=== PATIENT | male | born 1970 | race Two or more races ===

== ENCOUNTER 2019-04-26 10:48 | Emergency (ER) | payer SELFPAY ==
[~2019-04-26] VITALS: Ht 154.9 cm; Wt 73.0 kg
[2019-04-26 13:21] LABS: CLARITY URINE CLEAR (CLEAR); COLOR URINE YELLOW (YELLOW); KETONES URINE NEGATIVE (NEGATIVE); LEUKOCYTE ESTERASE URINE NEGATIVE (NEGATIVE); NITRITE URINE NEGATIVE (NEGATIVE); OCCULT BLOOD URINE NEGATIVE (NEGATIVE); PROTEIN URINE NEGATIVE (NEGATIVE); SPECIFIC GRAVITY URINE 1.039 (1.005-1.030); UROBILINOGEN URINE 0.2 E.U./dL (0.2-1.0)
[2019-04-26] MEDS ORDERED: IBUPROFEN 600MG TABLET PO STA (13:47)
[2019-04-26 14:58] VITALS: BP 126/78
== END 2019-04-26 14:59 | disposition home or self-care (01) ==
LOC: ER 10:48
DX: J20.9 Acute bronchitis, unspecified (principal); M54.5 Low back pain
CPT/HCPCS: 71045; 81003; 99284

== ENCOUNTER 2019-05-06 09:43 | Inpatient (IN) | payer OTHER, MEDICAID ==
[~2019-05-06] VITALS: Ht 154.9 cm; Wt 56.7 kg
[2019-05-06] MEDS ORDERED: METF-415 PO (10:04)
[2019-05-06] MEDS ORDERED: SODIUM CHLORIDE 0.9% 1,000 ML IV ONE (10:11)
[2019-05-06] MEDS ORDERED: KETOROLAC 30MG/ML VIAL IV STA (10:11)
[2019-05-06 10:53] LABS: HEMATOCRIT. 40.7 % (42.0-52.0); HEMOGLOBIN. 13.5 g/dL (14.0-18.0); MEAN CORPUSCULAR HEMOGLOBIN 29.5 pg (28.0-32.0); MEAN CORPUSCULAR VOLUME 89.1 fL (80.0-94.0); MEAN PLATELET VOLUME 8.2 fl (7.4-10.4); PLATELET 479 x1000/uL (130-400); RED BLOOD CELL COUNT 4.57 mill/uL (4.7-6.1); RED CELL DISTRIBUTION WIDTH 12.1 % (11.6-14.6)
[2019-05-06 10:59] LABS: CHLORIDE 98 mEq/L (98-107)
[2019-05-06 11:05] LABS: CLARITY URINE CLEAR (CLEAR); COLOR URINE YELLOW (YELLOW); KETONES URINE 1+ (NEGATIVE); LEUKOCYTE ESTERASE URINE NEGATIVE (NEGATIVE); NITRITE URINE NEGATIVE (NEGATIVE); OCCULT BLOOD URINE NEGATIVE (NEGATIVE); PH URINE 5.5 (4.5-8.0); PROTEIN URINE TRACE (NEGATIVE); SPECIFIC GRAVITY URINE 1.038 (1.005-1.030)
[2019-05-06 11:11] LABS: INR 0.9; PROTHROMBIN TIME 9.7 sec (9.6-11.0)
[2019-05-06 12:06] LABS: PLATELET ESTIMATE INCREASED
[2019-05-06] MEDS ORDERED: SODIUM CHLORIDE 0.9% 1000ML BAG (SEPSIS BOLUS) IV ONE (12:15)
[2019-05-06] MEDS ORDERED: LEVOFLOXACIN 500MG PREMIX 100 ML IV ONE (12:15)
[2019-05-06] MEDS ORDERED: INSULIN REGULAR (HUMULIN R) 300UNITS/3ML IV ONE (13:45)
[2019-05-06 16:30] VITALS: BP 140/84
[2019-05-06] MEDS ORDERED: SODIUM CHLORIDE 0.45% 1,000 ML IV SCH (17:54)
[2019-05-06] MEDS ORDERED: CLONIDINE 0.1MG TABLET PO PRN (18:00)
[2019-05-06] MEDS ORDERED: ACETAMINOPHEN 325MG TABLET PO PRN (18:00)
[2019-05-06] MEDS ORDERED: MAGNESIUM/ALUMINUM HYDROXIDE/SIMETHICONE 30ML UDC PO PRN (18:00)
[2019-05-06] MEDS ORDERED: ONDANSETRON HCL 4MG/2ML INJ IV PRN (18:00)
[2019-05-06] MEDS ORDERED: HYDROMORPHONE HCL/PF 2MG/ML CPJ IV PRN (18:00)
[2019-05-06] MEDS ORDERED: DOCUSATE SODIUM 100MG CAPSULE PO PRN (18:00)
[2019-05-06 20:00] VITALS: BP 157/85
[2019-05-06] MEDS: CEFTRIAXONE 1 G PREMIX 50 ML IV SCH (20:32)
[2019-05-06] MEDS: ENOXAPARIN 40MG/0.4ML SYR SUBCUT SCH (20:38)
[2019-05-06] MEDS: HYDROCODONE/ACETAMINOPHEN 5/325MG TABLET PO PRN (20:42)
[2019-05-06] MEDS: AZITHROMYCIN 500 MG in DEXT 5% WATER 250 ML IV SCH (21:40)
[2019-05-06] MEDS: INSULIN GLARGINE UD 100 UNITS/ML SYR SUBCUT SCH (21:43)
[2019-05-07] VITALS: BP 130/74
[2019-05-07 04:00] VITALS: BP 139/77
[2019-05-07 07:32] LABS: CHLORIDE 104 mEq/L (98-107)
[2019-05-07 07:34] LABS: BASOPHILS % 0.9 % (0.0-2.0); EOSINOPHILS % 10.5 % (0.0-5.0); HEMATOCRIT. 33.6 % (42.0-52.0); HEMOGLOBIN. 11.8 g/dL (14.0-18.0); MEAN CORPUSCULAR HEMOGLOBIN 30.5 pg (28.0-32.0); MEAN CORPUSCULAR VOLUME 86.7 fL (80.0-94.0); MEAN PLATELET VOLUME 7.9 fl (7.4-10.4); MONOCYTES % 7.6 % (2.0-8.0); PLATELET 445 x1000/uL (130-400); RED BLOOD CELL COUNT 3.88 mill/uL (4.7-6.1); RED CELL DISTRIBUTION WIDTH 12.1 % (11.6-14.6)
[2019-05-07 07:50] LABS: LDL CHOLESTEROL 77 mg/dL (5-100)
[2019-05-07 07:51] LABS: HDL CHOLESTEROL 28 mg/dL (40-59)
[2019-05-07] MEDS: HYDROCODONE/ACETAMINOPHEN 5/325MG TABLET PO PRN ×2 (07:52→21:22)
[2019-05-07 08:00] VITALS: BP 148/80
[2019-05-07] MEDS: AMLODIPINE 10MG TABLET PO SCH (08:47)
[2019-05-07] MEDS: CEFTRIAXONE 1 G PREMIX 50 ML IV SCH (19:48)
[2019-05-07 20:00] VITALS: BP 146/74
[2019-05-07] MEDS: AZITHROMYCIN 500 MG in DEXT 5% WATER 250 ML IV SCH (21:14)
[2019-05-07] MEDS: ENOXAPARIN 40MG/0.4ML SYR SUBCUT SCH (21:15)
[2019-05-07] MEDS: INSULIN GLARGINE UD 100 UNITS/ML SYR SUBCUT SCH (22:27)
[2019-05-08] VITALS: BP 111/68
[2019-05-08 04:00] VITALS: BP 104/64
[2019-05-08 08:00] VITALS: BP 146/79
[2019-05-08] MEDS: AMLODIPINE 10MG TABLET PO SCH (08:55)
[2019-05-08 12:00] VITALS: BP 123/60
[2019-05-08 14:01] VITALS: BP 134/81
[2019-05-08] MEDS ORDERED: AZITHROMYCIN 500 MG TABLET PO SCH (20:00)
== END 2019-05-08 14:47 | disposition home or self-care (01) | DRG 139 ==
LOC: ER 11:07 → 6EST 13:38 → EDBEDREQ 13:53 → ENRESERV 14:48
PROVIDERS: ADMIT Hospitalist; ATTEND Hospitalist
DX: J18.9 Pneumonia, unspecified organism (principal); E44.0 Moderate protein-calorie malnutrition; E11.65 Type 2 diabetes mellitus with hyperglycemia; I10 Essential (primary) hypertension; Z79.84 Long term (current) use of oral hypoglycemic drugs
CPT/HCPCS: 36415; 71045; 74176; 80053; 80061; 81003; 82962; 83036; 83605; 83880; 84484; 85025; 93005; 93970; 99285; J0456; J0696; J1650; J1815; J1885; J1956; J7030; J7040; J7060

== ENCOUNTER 2021-12-15 09:30 | Emergency (ER) | payer MEDICAID ==
[~2021-12-15] VITALS: Ht 167.6 cm; Wt 69.0 kg
[~2021-12-15 09:30] MED LIST: METF-415 PO
[2021-12-15 09:35] VITALS: BP 185/98
[2021-12-15] MEDS ORDERED: IBUPROFEN 600MG TABLET PO STA (10:32)
[2021-12-15] MEDS ORDERED: IBUP-2030 PO (10:59)
[2021-12-15] MEDS ORDERED: TRAM50TA3 MT (10:59)
== END 2021-12-15 11:06 | disposition home or self-care (01) ==
LOC: ER 09:30
DX: M72.2 Plantar fascial fibromatosis (principal); E11.9 Type 2 diabetes mellitus without complications; Z79.84 Long term (current) use of oral hypoglycemic drugs
CPT/HCPCS: 99282

== ENCOUNTER 2022-03-28 10:02 | Emergency (ER) | payer MEDICAID ==
[~2022-03-28] VITALS: Ht 165.1 cm; Wt 60.0 kg
[~2022-03-28 10:02] MED LIST changes: +IBUP-2030 PO; +TRAM50TA3 MT
[2022-03-28 10:40] VITALS: BP 145/81
[2022-03-28] MEDS ORDERED: BECL10.62 INH (18:02)
== END 2022-03-28 19:13 | disposition home or self-care (01) ==
LOC: ER 10:43
DX: J20.9 Acute bronchitis, unspecified (principal); E11.9 Type 2 diabetes mellitus without complications; Z20.822 Contact with and (suspected) exposure to COVID-19; M54.59 Other low back pain; R03.0 Elevated blood-pressure reading, without diagnosis of hypertension; Z79.84 Long term (current) use of oral hypoglycemic drugs
CPT/HCPCS: 71046; 87426; 87804; 99284; C9803

== ENCOUNTER 2022-11-18 20:59 | Emergency (ER) | payer MEDICAID, OTHER ==
[~2022-11-18] VITALS: Ht 149.9 cm; Wt 72.7 kg
[~2022-11-18 20:59] MED LIST changes: +BECL10.62 INH
[2022-11-18 22:12] VITALS: BP 186/87; PULSE 71; RESP 14; TEMP 98.4; O2SAT 99
[2022-11-19] MEDS ORDERED: LIDOCAINE HCL 1% 20ML VIAL (Pyxis) INJ INFIL ONE
[2022-11-19] MEDS ORDERED: SULF1TAB48 MT (00:51)
[2022-11-19] MEDS ORDERED: MUPI15CR11 TP (00:52)
== END 2022-11-19 01:07 | disposition home or self-care (01) ==
LOC: ER 20:59
DX: L72.3 Sebaceous cyst (principal); L02.11 Cutaneous abscess of neck; Z79.899 Other long term (current) drug therapy
CPT/HCPCS: 99284; 10060; J3490

== ENCOUNTER 2024-08-20 05:53 | Emergency (ER) | payer MEDICAID, OTHER ==
[~2024-08-20] VITALS: Ht 154.9 cm; Wt 70.0 kg
[~2024-08-20 05:53] MED LIST changes: +MUPI15CR11 TP; +SULF1TAB48 MT
[2024-08-20 06:05] VITALS: O2SAT 100
[2024-08-20] MEDS ORDERED: CETI10CA2 MT (06:22)
[2024-08-20] MEDS ORDERED: DEXAMETHASONE 1MG TABLET PO ONE (06:30)
[2024-08-20] MEDS: CETIRIZINE 10MG TABLET PO SCH (06:47)
[2024-08-20] MEDS: DEXAMETHASONE 4MG TABLET PO NR (06:47)
[2024-08-20 06:51] VITALS: BP 138/60; PULSE 83; RESP 17; TEMP 36.7; O2SAT 100
== END 2024-08-20 06:54 | disposition home or self-care (01) ==
LOC: ER 05:53
DX: R21 Rash and other nonspecific skin eruption (principal); Z79.899 Other long term (current) drug therapy
CPT/HCPCS: 99283; J8540